=== PATIENT | male | born 1990 | race Caucasian/White ===

== ENCOUNTER 2022-10-10 07:54 | Outpatient (CLI) | payer OTHER, SELFPAY | END 2022-10-10 07:55 | disposition home or self-care (01) | LOC: NFLDREF 10-11 07:06 | PROVIDERS: PCP Family Medicine; Referring Provider Family Medicine; Visit Provider Family Medicine | DX: Z00.00 Encounter for general adult medical examination without abnormal findings (principal); R79.89 Other specified abnormal findings of blood chemistry | CPT/HCPCS: 80048; 80061; 80076 ==

== ENCOUNTER 2023-07-16 18:24 | Outpatient (CLI) | payer OTHER, SELFPAY ==
--- OUTSIDE RECORDS SUMMARY | 2023-07-16 18:27 | XMS_ITS | Clinical Summary ---
Author Name Unknown Organization [facility] Address [place], [place] [address] Care Team Providers Care Gold Leaf Laborer Name Role Phone Jerry Erwin MD Primary Care Provider [phone] Allergies Active Allergy Reactions Criticality Noted Date Comments Amoxicillin Hives 07/17/2009 Penicillins Hives 07/17/2009 Medications Medication Sig Dispensed Refills Start Date End Date Status azithromycin (ZITHROMAX Z-EVELYN) 250 mg tabletIndications:Left otitis media, unspecified otitis media type Take as directed 6 tablet 04/07/2020 Active Active Problems No known active problems Immunizations Name Administration Dates Next Due Tuberculin (PPD) 12/31/2012 Social History Tobacco Use Types Packs/Day Years Used Date Smoking Tobacco: Never Smokeless Tobacco: Never Alcohol Use Standard Drinks/Week Comments Yes 0 (1 standard drink = 0.6 oz pur e alcohol) Sex and Gender Information Value Date Recorded Sex Assigned at Not on file Gender Identity Not on file Sexual Orientation Not on file Obstetrics History Last Filed Vital Signs Vital Sign Reading Time Taken Comments Blood Pressure 134/74 04/07/2020 3:41 PM FRAME PULLEY MORTISING MACHINE OPERATOR Pulse 118 04/07/2020 3:41 PM FRAME PULLEY MORTISING MACHINE OPERATOR Temperature 38.8 ??C (101.9 ??F) 04/07/2020 3:[address] Respiratory Rate 20 04/07/2020 3:41 PM FRAME PULLEY MORTISING MACHINE OPERATOR Oxygen Saturation 97% 04/07/2020 3:41 PM FRAME PULLEY MORTISING MACHINE OPERATOR Inhaled Oxygen Concentration - - Weight 90.7 kg (200 lb) 04/07/2020 3:41 PM FRAME PULLEY MORTISING MACHINE OPERATOR Height 175.3 cm (5' 9) 04/07/2020 3:41 PM FRAME PULLEY MORTISING MACHINE OPERATOR Body Mass Index 29.53 04/07/2020 3:41 PM FRAME PULLEY MORTISING MACHINE OPERATOR Plan of Treatment Health Maintenance Due Date Last Done Comments Tdap 10/13/1999 Depression screening for age 12+ 2000 HIV for age 15-65 10/13/2003 BMI (ht and wt on same day) for age 18+ 2006 Hepatitis C screening for ag e 18-79 2006 Tetanus booster 2008 COVID-19 vaccine series (2022- season) 2022 Influenza for age 9-49 11/18/2023 Pneumococcal series for age 6-64 Aged Out No longer eligible based on patient's age to complete this topic Care Teams Gold Leaf Laborer Relationship Specialty Start Date End Date Jerry Erwin MD [address] [place] [address] PCP - General Family Practice 04/07/20
--- OUTSIDE RECORDS SUMMARY | 2023-07-16 18:27 | XMS_ITS | Continuity of Care Document ---
Author Name [facility] Organization [facility] Care Team Providers Care Radiologist Chief Of Breast Imaging Name Role Phone [facility] Unavailable Unavailable Problems Combined list of problems from Department of [facility] and [facility] facilities. It does not include entries that were removed or entered in error. 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 Inactive 1 Condition [facility] Anxiety Active Condition [facility] Chronic low back pain Active Condition [facility] Obstructive sleep apnea of adult Active Condition [facility] refractive error - myopia Active Condition [facility] astigmatism Active Condition [facility] visit for: examination of subpopulation Active Condition [facility] assess patient condition work-related occupational disease Active Condition [facility] visit for: ears / hearing exam Inactive Condition [facility] Patient Education - Injury Prevention Active Condition [facility] Allergies, Adverse Reactions, Alerts Combined list of allergies from Department of [facility] and [facility] facilities. It does not include entries that were removed or entered in error. Substance Category Reaction Severity Reaction type Status Date Reported Comments Source AMOXICILLIN Propensity to adverse reactions to drug (finding) Urticaria active 7 [facility] PENICILLIN Propensity to adverse reactions to drug (finding) Urticaria active 7 [facility] Immunizations Combined list of available immunizations from the Department of [facility] and [facility] facilities. Immunization Series Date Given Administered By Site Reaction Lot Number CVX Code Drug Tape Coater Status Comments Source COVID-19 (KALIN), VECTOR-NR, [id number]-AD26, PF, 0.5 ML 1 2020 212 complet ed [place] TA INFLUENZA, UNSPECIFIED FORMULATION 2020 88 complet ed [place] [facility] tetanus toxoid, reduced diphtheria toxoid, and acellular pertu is vaccine, adsorbed 1 [id number] [place] [address] ([facility]) complet ed tetanus toxoid, reduced diphtheri a toxoid, and acellular pertussis vaccine, adsorbed DoD anthrax vaccine 5 2018 [id number] [facility] ([facility]) complet ed anthrax vaccine DoD anthrax vaccine 4 2017 [id number] [facility] ([facility]) complet ed anthrax vaccine DoD typhoid Vi capsular polysaccharid e vaccine 1 2017 [id number] Sanofi Pasteur ([facility]) complet ed typhoid Vi capsular polysacch aride vaccine DoD Influenza, injectable, quadrivalent, preservative free 1 2017 [id number] 150 [employer] (SEQ) comple t ed Influenza , injectabl e, quadrival ent, preservat lalitha free DoD Influenza, injectable, Madin Coni Canine Kidney, preservative free, quadrivalent 1 2016 [id number] [employer] (SEQ) comple t ed Influenza , injectabl e, Madin Coni Canine Kidney, preservat lalitha free, quadrival ent DoD Influenza, injectable, quadrivalent, preservative free 1 2016 [id number] 150 [employer] (SEQ) comple t ed Influenza , injectabl e, quadrival ent, preservat lalitha free DoD Influenza, injectable, quadrivalent, preservative free 1 2014 [id number] 150 Unknown (UNK) comple t ed Influenza , injectabl e, quadrival ent, preservat lalitha free DoD Influenza, injectable, Madin Coni Canine Kidney, preservative free 1 2013 [id number] 153 Nov[employer]is [employer] l Amber. (NOV) complet ed Influenza , injectabl e, Madin Coni Canine Kidney, preservat lalitha free DoD Influenza, seasonal, injectable, preservative free 1 2012 [id number] 140 Novart[employer] Amber. (NOV) complet ed Influenza , seasonal, injectabl e, preservat lalitha free DoD Influenza, seasonal, injectable, preservative free 1 2011 [id number] 140 [facility] [employer] ([facility]) complet ed Influenza , seasonal, injectabl e, preservat lalitha free DoD anthrax vaccine [id number] [facility]) complet ed anthrax vaccine DoD Influenza, seasonal, injectable 1 2010 [id number] 141 [email or web address] (CSL) complet ed Influenza , seasonal, injectabl e DoD anthrax vaccine 2 2010 [id number] 24 [facility] ([facility]) complet ed anthrax vaccine DoD anthrax vaccine 1 2010 [id number] 24 [facility] ([facility]) complet ed anthrax vaccine DoD vaccinia (smallpox) vaccine 1 2010 [id number] 75 (CINTIA) complet ed vaccinia (smallpox ) vaccine DoD typhoid Vi capsular polysaccharid e vaccine 1 2010 [id number] Sanofi Pasteur ([facility]) complet ed typhoid Vi capsular polysacch aride vaccine DoD hepatitis A and hepatitis B vaccine 4 2009 [id number] 104 Unknown (UNK) complet ed hepatitis A and hepatitis B vaccine DoD influenza virus vaccine, split virus (incl. purified surface antigen)-reti red CODE 1 2009 [id number] 15 [email or web address] (CS) complet ed influenza virus vaccine, split virus (incl. purified surface antigen)- retired CODE DoD Novel influenza-H1N 1-09, injectable 1 2009 [id number] 127 Unknown (UNK) complet ed Novel influenza -P1P3-52, injectabl e DoD hepatitis A and hepatitis B vaccine 3 2008 [id number] 104 Unknown (UNK) complet ed hepatitis A and hepatitis B vaccine DoD influenza virus vaccine, split virus (incl. purified surface antigen)-reti red CODE 1 2008 [id number] 15 [employer] (CS) complet ed influenza virus vaccine, split virus (incl. purified surface antigen)- retired CODE DoD hepatitis A and hepatitis B vaccine 2 2008 [id number] 104 Unknown (UNK) complet ed hepatitis A and hepatitis B vaccine DoD measles, mumps and rubella virus vaccine 1 2007 UNK 03 Unknown (UNK) Not Given measles, mumps and rubella virus vaccine DoD varicella virus vaccine 1 2007 UNK 21 Unknown (UNK) Not Given varicella virus vaccine DoD hepatitis B vaccine, adult dosage 1 2007 UNK 43 Unknown (UNK) Not Given hepatitis B vaccine, adult dosage [facility] poliovirus vaccine, inactivated 1 2007 [id number] 10 Sanofi Pasteur ([facility]) complet ed polioviru s vaccine, inactivat ed DoD hepatitis A vaccine, adult dosage 1 2007 [id number] 52 [employer] (SKB) complet ed hepatitis A vaccine, adult dosage DoD influenza virus vaccine, live, attenuated, for intranasal use 1 2007 [id number] 111 [employer]. (MED) complet ed influenza virus vaccine, live, attenuate d, for intranasa l use DoD meningococcal polysaccharid e (groups A, C, Y and W-135) diphtheria toxoid conjugate vaccine (MCV4P) 1 2007 [id number] 114 Sanofi Pasteur ([facility]MC) complet ed meningoco ccal polysacch aride (groups A, C, Y and W-135) diphtheri a toxoid conjugate vaccine (MCV4P) [facility] tetanus toxoid, reduced diphtheria toxoid, and acellular pertu is vaccine, adsorbed 1 2007 [id number] 115 Sanofi Pasteur ([facility]) complet ed tetanus toxoid, reduced diphtheri a toxoid, and acellular pertussis vaccine, adsorbed DoD Encounters Combined list of: 1) Encounters from Department of Veterans Affairs facilities going back up to thelast 18 months. 2) Encounters from the Department of Defense facilities going back up to 280 months. Location Location Details Encounter Type Encounter Number Reason For Visit Attending Provider ADM Date DC Date Status Disposition Source [place]) OUTPATIENT [id number] 070 TIM INIGUEZ 01/21 Released w/o Limitations [place] ) OUTPATIENT [id number] KRISTI SPEARS 02/18 Released w/o Limitations [place] [facility] OUTPATIENT [id number] 01/10 Released w/o Limitations Theater [place]([facility] Bldg [address]) OUTPATIENT [id number] Notes Entered by: Sahil EWING 11 Dec 2017 0914 ------- ------- ------- ------- -- CHANDU YOUNG 12/11 Released w/o Limitations [place]([facility] [address]) Theater Facility OUTPATIENT [id number] Theater Provider 08/14 Released w/o Limitations [facility] OUTPATIENT [id number] Theater Provider 08/23 Released w/o Limitations Theater [facility] OUTPATIENT [id number] Theater Provider 08/28 Released w/o Limitations Theater Facilit [place]([facility] [address]) OUTPATIENT [id number] Notes Entered by: JUNE HERNANDEZ 13 Sep 2018 0827 ------- ------- ------- ------- -- SERGIO Sanchez 09/13 Released w/o Limitations [place]([facility] [address]) [place] Hearing Conservat ion) OUTPATIENT [id number] Notes Entered by: NATALIA HOLM 13 Sep 2018 0909 ------- ------- ------- ------- -- YUMIKO Pfeiffer 09/13 Released w/o Limitations [place]([facility] Hearing Conserv ation) [place] Physical Exam Clinic) OUTPATIENT [id number] Notes Entered by: VLADISLAV FERRO SA 13 Sep 2018 1209 ------- ------- ------- ------- -- MARKUS AU 09/13 Released w/o Limitations [place]([facility] Physica l Exam Clinic) [place] [facility] Outpatient Encounter [id number] 10/11 [facility] [place] [facility] Procedures Combined list of: 1) Procedures from Department of Veterans Affairs facilities going back up to thelast 18 months, not all VA non-surgical procedures are included; 2) All procedures from the Department of Defense facilities. Procedure Procedure Type Code Date Perfomer Comments Sourc e Threshold Audiogram (Pure Tone) Automated Threshold Audiogram (Pure Tone) Automated [id number] 09/14/19 19 YUMIKO MATA [facility] Patient education, not otherwise cla ified, non-physician provider, group, per se ion 09/14/19 19 YUMIKO MATA [facility] Preventive Medicine Administration Of Health Risk Questionnaire Patient-Focused Preventive Medicine Administration Of Health Risk Questionnaire Patient-Focused 47693 12/12/19 18 CHANDU MCCRARY [facility] Health And Behav A e mt Each 15 Min Initial A e ment Health And Behav Assessmt Each 15 Min Initial Assessment 31715 08/26/19 11 TIM MANDUJANO [facility] Screening Test Of Visual Acuity, Quantitative, Bilateral Screening Test Of Visual Acuity, Quantitative, Bilateral 50795 02/19/20 08 KRISTI SPEARS [facility] Determination Of Refractive State Determination Of Refractive State 99520 02/19/20 08 KRISTI SPEARS [facility] Spectacles Services Fitting Monofocal Except For Aphakia Spectacles Services Fitting Monofocal Except For Aphakia 43617 02/19/20 08 KRISTI SPEARS [facility] Audiometry Group Testing Audiometry Grou p Testing 76677 01/22/20 08 TIM INIGUEZ Ear mold/insert, not disposable, any type 01/22/20 08 TIM INIGUEZ [facility] HEALTH&BEHAV ASSESSMENT (EG, HEALTH-FOC CLINICAL INTERVIEW, BEHAVIORAL OBSERVATIONS, PSYCHOPHYSICOLOGICAL MONITOR, HEALTH-ORIENT QUESTIONNAIRES), EA 15 MIN [id number] W THE PATIENT; INIT ASSESSMENT 08/26/19 11 [facility] FITTING OF SPECTACLES, EXCEPT FOR APHAKIA; MONOFOCAL 08/20/19 11 [facility] IMMUNIZATION ADMINISTRATION (INCLUDES PERCUTANEOUS, INTRADERMAL, SUBCUTANEOUS, OR INTRAMUSCULAR INJECTIONS); EACH ADDITIONAL VACCINE (SINGLE OR COMBINATION VACCINE/TOXOID) 08/20/19 11 [facility] SCREENING TEST OF VISUAL ACUITY, QUANTITATIVE, BILATERAL 02/19/20 08 [facility] BUPRENORPHINE IMPLANT, 74.2 MG 01/22/20 08 [facility] EAR MOLD/INSERT, NOT DISPOSABLE, ANY TYPE 01/22/20 08 [facility] COLLECTION OF VENOUS BLOOD BY VENIPUNCTURE 01/21/20 08 [facility] PATIENT EDUCATION, NOT OTHERWISE CLASSIFIED, NON-PHYSICIAN PROVIDER, GROUP, PER SESSION 09/14/19 19 [facility] SCREENING TEST OF VISUAL ACUITY, QUANTITATIVE, BILATERAL 09/14/19 19 [facility] ADMINISTRATION OF PATIENT-FOCUSED HEALTH RISK ASSESSMENT INSTRUMENT (EG, HEALTH HAZARD APPRAISAL) WITH SCORING AND DOCUMENTATION, PER STANDARDIZED INSTRUMENT 12/12/19 18 [facility] TYPHOID VACCINE, CAPSULAR POLYSACCHARIDE (VICPS), FOR INTRAMUSCULAR USE 12/11/19 18 [facility] Social History Combined list of available smoking, tobacco, and other social history from Department of Defense and Veterans Affairs facilities. Social History Type Response Date Comment Sour e Tobacco smoking status [facility]-TOBACCO NEVER USED 11/02/2020 [facility] This section is an empty social history section. [facility]
== END 2023-07-16 18:25 | disposition home or self-care (01) ==
PROVIDERS: PCP Family Medicine; Visit Provider Family Medicine
DX: B35.1 Tinea unguium (principal); Z79.899 Other long term (current) drug therapy
CPT/HCPCS: 80053

== ENCOUNTER 2023-08-15 07:50 | Outpatient (CLI) | payer OTHER, SELFPAY ==
--- OUTSIDE RECORDS SUMMARY | 2023-08-16 10:23 | XMS_ITS | Clinical Summary ---
Author Organization [facility] Address [place], [place] [address] Care Team Providers Care Brokerage Office Manager Name Role Phone Jerry Erwin MD Primary Care Provider [phone] Allergies Active Allergy Reactions Criticality Noted Date [...] Comments Blood Pressure 134/74 04/07/2020 3:41 PM RN ACUTE CARE Pulse 118 04/07/2020 3:41 PM RN ACUTE CARE Temperature 38.8 ??C (101.9 ??F) 04/07/2020 3:[address] Respiratory Rate 20 04/07/2020 3:41 PM RN ACUTE CARE Oxygen Saturation 97% 04/07/2020 3:41 PM RN ACUTE CARE Inhaled Oxygen Concentration - - Weight 90.7 kg (200 lb) 04/07/2020 3:41 PM RN ACUTE CARE Height 175.3 cm (5' 9) 04/07/2020 3:41 PM RN ACUTE CARE Body Mass Index 29.53 04/07/2020 3:41 PM RN ACUTE CARE Plan of Treatment Health Maintenance Due Date [...] age to complete this topic Care Teams Brokerage Office Manager Relationship Specialty Start Date End Date Jerry Erwin MD [address] [place] [address] PCP - General Family Practice 04/07/20
--- OUTSIDE RECORDS SUMMARY | 2023-08-16 10:23 | XMS_ITS | Continuity of Care Document ---
Author Name [facility] Organization [facility] Care Team Providers Care Channeler Name Role Phone [facility] Unavailable Unavailable Problems Combined list of problems from Department of [facility] ([place], [place]) and [facility] facilities. It does not include entries that were removed or entered in error. 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 Inactive 1 Condition [facility] Anxiety Active Condition [facility] Chronic low back pain Active Condition [facility] Obstructive sleep apnea of adult Active Condition [facility] refractive error - myopia Active Condition [facility] astigmatism Active Condition [facility] visit for: examination of subpopulation Active Condition [facility] assess patient condition work-related occupational disease Active Condition [facility] visit for: ears / hearing exam Inactive Condition [facility] Patient Education - Injury Prevention Active Condition [facility] Allergies, Adverse Reactions, Alerts Combined list of allergies from Department of [facility] ([place], [place]) and [facility] facilities. It does not include entries that were removed or entered in error. Substance Category Reaction Severity Reaction type Status Date Reported Comments Source AMOXICILLIN Propensity to adverse reactions to drug (finding) Urticaria active 7 [facility] PENICILLIN Propensity to adverse reactions to drug (finding) Urticaria active 7 [facility] Immunizations Combined list of available immunizations from the Department of [facility] ([place], [place]) and [facility] facilities. Immunization Series Date Given Administered By Site Reaction Lot Number CVX Code Drug Strategy Lead Status Comments Source COVID-19 (KALIN), VECTOR-NR, RS-AD26, PF, 0.5 ML 1 2020 212 complet ed [place] TA INFLUENZA, UNSPECIFIED FORMULATION 2020 88 complet ed [place] [facility] tetanus toxoid, reduced diphtheria toxoid, and acellular pertu is vaccine, adsorbed 1 [id number] [place] [address] ([facility]) complet ed tetanus toxoid, reduced diphtheri a toxoid, and acellular pertussis vaccine, adsorbed DoD anthrax vaccine 5 2018 [id number] [facility] ([facility]) complet ed anthrax vaccine DoD anthrax vaccine 4 2017 [id number] [facility] ([facility]) complet ed anthrax vaccine DoD typhoid Vi capsular polysaccharid e vaccine 1 2017 [id number] Sanofi Pasteur ([facility]) complet ed typhoid Vi capsular polysacch aride vaccine DoD Influenza, injectable, quadrivalent, preservative free 1 2017 [id number] [employer] (SEQ) comple t ed Influenza , injectabl e, quadrival ent, preservat lalitha free DoD Influenza, injectable, Madin Dixie Canine Kidney, preservative free, quadrivalent 1 2016 [id number] [employer] (SEQ) comple t ed Influenza , injectabl e, Madin Dixie Canine Kidney, preservat lalitha free, quadrival ent DoD Influenza, injectable, quadrivalent, preservative free 1 2016 [id number] 150 [employer] (SEQ) comple t ed Influenza , injectabl e, quadrival ent, preservat lalitha free DoD Influenza, injectable, quadrivalent, preservative free 1 2014 [id number] 150 Unknown (UNK) comple t ed Influenza , injectabl e, quadrival ent, preservat lalitha free DoD Influenza, injectable, Madin Dixie Canine Kidney, preservative free 1 2013 [id number] 153 Novartis [employer] l Amber. (NOV) complet ed Influenza , injectabl e, Madin Coni Canine Kidney, preservat lalitha free DoD Influenza, seasonal, injectable, preservative free 1 2012 [id number] 140 Novartis [employer] Amber. (NOV) complet ed Influenza , seasonal, injectabl e, preservat lalitha free DoD Influenza, seasonal, injectable, preservative free 1 2011 [id number] 140 [facility] [employer] ([facility]) complet ed Influenza , seasonal, injectabl e, preservat lalitha free DoD anthrax vaccine 3 2011 [id number] [facility] ([facility]) complet ed anthrax vaccine DoD Influenza, seasonal, injectable 1 2010 [id number] 141 [employer] (CSL) complet ed Influenza , seasonal, injectabl e DoD anthrax vaccine 2 2010 [id number] 24 [facility] ([facility]) complet ed anthrax vaccine DoD anthrax vaccine 1 2010 [id number] [facility] (MIP) complet ed anthrax vaccine DoD vaccinia (smallpox) vaccine 1 2010 [id number] 75 (CINTIA) complet ed vaccinia (smallpox ) vaccine DoD typhoid Vi capsular polysaccharid e vaccine 1 2010 [id number] Sanofi Pasteur ([facility]) complet ed typhoid Vi capsular polysacch aride vaccine DoD hepatitis A and hepatitis B vaccine 4 2009 [id number] 104 Unknown (UNK) complet ed hepatitis A and hepatitis B vaccine DoD influenza virus vaccine, split virus (incl. purified surface antigen)-reti red CODE 1 2009 [id number] 15 [employer] (CS) complet ed influenza virus vaccine, split virus (incl. purified surface antigen)- retired CODE DoD Novel influenza-H1N 1-09, injectable 1 2009 [id number] 127 Unknown (UNK) complet ed Novel influenza -T5O0-61, injectabl e DoD hepatitis A and hepatitis B vaccine 3 2008 [id number] 104 Unknown (UNK) complet ed hepatitis A and hepatitis B vaccine DoD influenza virus vaccine, split virus (incl. purified surface antigen)-reti red CODE 1 2008 [id number] 15 [employer] (CS) complet ed influenza virus vaccine, [...] Not Given hepatitis B vaccine, adult dosage [facility] poliovirus vaccine, inactivated 1 2007 [id number] 10 Sanofi Pasteur ([facility]) complet ed polioviru s vaccine, inactivat ed DoD hepatitis A vaccine, adult dosage 1 2007 [id number] 52 [employer] (SKB) complet ed hepatitis A vaccine, adult dosage DoD influenza virus vaccine, live, attenuated, for intranasal use 1 2007 [id number] 111 [employer]. (MED) complet ed influenza virus vaccine, live, attenuate d, for intranasa l use DoD meningococcal polysaccharid e (groups A, C, Y and W-135) diphtheria toxoid conjugate vaccine (MCV4P) 1 2007 [id number] 114 Sanofi Pasteur (PMC) complet ed meningoco ccal polysacch aride (groups A, C, Y and W-135) diphtheri a toxoid conjugate vaccine (MCV4P) [facility] tetanus toxoid, reduced diphtheria toxoid, and acellular pertu is vaccine, adsorbed 1 2007 [id number] 115 Sanofi Pasteur ([facility]) complet ed tetanus [...] ADM Date DC Date Status Disposition Source [place]) OUTPATIENT [id number] TIM INIGUEZ 01/21 Released w/o Limitations [place] [facility] [place] OUTPATIENT [id number] KRISTI SPEARS 02/18 Released w/o Limitations [place] [facility] OUTPATIENT [id number] 01/10 Released w/o Limitations [facility] [place]([facility] B[address] [address]) OUTPATIENT [id number] Notes Entered by: Sahil EWING 11 Dec 2017 0914 ------- ------- ------- ------- -- CHANDU YOUNG 12/11 Released w/o Limitations [place]([facility] [address]) [facility] OUTPATIENT [id number] Theater Provider 08/14 Released w/o Limitations [facility] OUTPATIENT [id number] Theater Provider 08/23 Released w/o Limitations [facility] OUTPATIENT [id number] Theater Provider 08/28 Released w/o Limitations [facility] [place] [address]) OUTPATIENT [id number] Notes Entered by: JUNE HERNANDEZ 13 Sep 2018 0827 ------- ------- ------- ------- -- SERGIO Sanchez 09/13 Released w/o Limitations [place] [address]) [place] Hearing Conservat ion) OUTPATIENT [id number] Notes Entered by: NATALIA HOLM 13 Sep 2018 0909 ------- ------- ------- ------- -- YUMIKO Pfeiffer 09/13 Released w/o Limitations [place] Hearing Conserv ation) [place]) OUTPATIENT [id number] Notes Entered by: VLADISLAV FERRO SA 13 Sep 2018 1209 ------- ------- ------- ------- -- MARKUS AU 09/13 Released w/o Limitations [place]([facility]) [facility] [facility] Outpatient Encounter [id number] 10/11 [facility] Procedures Combined list of: 1) Procedures from Department of Veterans Affairs facilities going back up to thelast 18 months, not all VA non-surgical procedures are included; 2) All procedures from the Department of Defense facilities. Procedure Procedure Type Code Date Perfomer Comments Sourc e Threshold Audiogram (Pure Tone) Automated Threshold Audiogram (Pure Tone) Automated [id number] 09/14/19 19 YUMIKO MATA [facility] Patient education, not otherwise cla ified, non-physician provider, group, per se ion 09/14/19 19 YUMIKO MATA [facility] Preventive Medicine Administration Of Health Risk Questionnaire Patient-Focused Preventive Medicine Administration Of Health Risk Questionnaire Patient-Focused 47359 12/12/19 18 CHANDU MCCRARY [facility] Health And Behav A e mt Each 15 Min Initial A e ment Health And Behav Assessmt Each 15 Min Initial Assessment 03501 08/26/19 11 TIM MANDUJANO [facility] Screening Test Of Visual Acuity, Quantitative, Bilateral Screening Test Of Visual Acuity, Quantitative, Bilateral 98926 02/19/20 08 KRISTI SPEARS [facility] Determination Of Refractive State Determination Of Refractive State 52314 02/19/20 08 KRISTI SPEARS [facility] Spectacles Services Fitting Monofocal Except For Aphakia Spectacles Services Fitting Monofocal Except For Aphakia 20690 02/19/20 08 KRISTI SPEARS Audiometry Group Testing Audiometry Grou p Testing 59518 01/22/20 08 TIM INIGUEZ Ear mold/insert, not disposable, any type 01/22/20 08 TIM INIGUEZ PATIENT EDUCATION, NOT OTHERWISE CLASSIFIED, NON-PHYSICIAN PROVIDER, GROUP, PER SESSION 09/14/19 19 [facility] SCREENING TEST OF VISUAL ACUITY, QUANTITATIVE, BILATERAL 09/14/19 19 [facility] ADMINISTRATION OF PATIENT-FOCUSED HEALTH RISK ASSESSMENT INSTRUMENT (EG, HEALTH HAZARD APPRAISAL) WITH SCORING AND DOCUMENTATION, PER STANDARDIZED INSTRUMENT 12/12/19 18 [facility] TYPHOID VACCINE, CAPSULAR POLYSACCHARIDE (VICPS), FOR INTRAMUSCULAR USE 12/11/19 18 [facility] SCREENING TEST OF VISUAL ACUITY, QUANTITATIVE, BILATERAL 02/19/20 08 [facility] BUPRENORPHINE IMPLANT, 74.2 MG 01/22/20 08 [facility] EAR MOLD/INSERT, NOT DISPOSABLE, ANY TYPE 01/22/20 08 [facility] COLLECTION OF VENOUS BLOOD BY VENIPUNCTURE 01/21/20 08 [facility] HEALTH&BEHAV ASSESSMENT (EG, HEALTH-FOC CLINICAL INTERVIEW, BEHAVIORAL OBSERVATIONS, PSYCHOPHYSICOLOGICAL MONITOR, HEALTH-ORIENT QUESTIONNAIRES), EA 15 MIN [id number] W THE PATIENT; INIT ASSESSMENT 08/26/19 11 [facility] FITTING OF SPECTACLES, EXCEPT FOR APHAKIA; MONOFOCAL 08/20/19 11 [facility] IMMUNIZATION ADMINISTRATION (INCLUDES PERCUTANEOUS, INTRADERMAL, SUBCUTANEOUS, OR INTRAMUSCULAR INJECTIONS); EACH ADDITIONAL VACCINE (SINGLE OR COMBINATION VACCINE/TOXOID) 08/20/19 11 [facility] Social History Combined list of available smoking, tobacco, and other social history from Department of Defense and Veterans Affairs facilities. Social History Type Response Date Comment [facility] e Tobacco smoking status [facility] VA-TOBACCO NEVER USED 11/02/2020 [facility] This section is an empty social history section. [facility]
== END 2023-08-15 07:51 | disposition home or self-care (01) ==
LOC: NFLDREF 08-16 10:22
PROVIDERS: PCP Family Medicine; Referring Provider Family Medicine; Visit Provider Family Medicine
DX: R79.89 Other specified abnormal findings of blood chemistry (principal); E78.00 Pure hypercholesterolemia, unspecified
CPT/HCPCS: 80061; 80076

== ENCOUNTER 2024-01-02 08:01 | Outpatient (CLI) | payer OTHER, SELFPAY ==
--- OUTSIDE RECORDS SUMMARY | 2024-01-02 15:10 | XMS_ITS | Continuity of Care Document ---
Author Name [facility] Organization [facility] Care Team Providers Care Loading Unit Tool Setter Name Role Phone [facility] Unavailable Unavailable Problems Combined list of problems from Department of [facility] ([place], [place]) and [facility] facilities. It does not include entries that were removed or entered in error. 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 Inactive 1 Condition [facility] Anxiety Active Condition [facility] Chronic low back pain Active Condition [facility] Obstructive sleep apnea of adult Active Condition [facility] refractive error - myopia Active Condition [facility] astigmatism Active Condition [facility] visit for: examination of subpopulation Active Condition [facility] assess patient condition work-related occupational disease Active Condition [facility] visit for: ears / hearing exam Inactive Condition [facility] Patient Education - Injury Prevention Active Condition [facility] Allergies, Adverse Reactions, Alerts Combined list of allergies from Department of [facility] ([place], [place]) and [facility] facilities. It does not include entries that were removed or entered in error. Substance Category Reaction Severity Reaction type Status Date Reported Comments Source AMOXICILLIN Propensity to adverse reactions to drug (finding) Urticaria active 7 [facility] PENICILLIN Propensity to adverse reactions to drug (finding) Urticaria active 7 [facility] Immunizations Combined list of available immunizations from the Department of [facility] ([place], [place]) and [facility] facilities. Immunization Series Date Given Administered By Site Reaction Lot Number CVX Code Drug Commissary Helper Status Comments Source COVID-19 (KALIN), VECTOR-NR, RS-AD26, PF, 0.5 ML 1 2020 212 complet ed [place] TA INFLUENZA, UNSPECIFIED FORMULATION 2020 88 complet ed [place] [facility] tetanus toxoid, reduced diphtheria toxoid, and acellular pertu is vaccine, adsorbed 1 [id number] [place] [address] ([facility]) complet ed tetanus toxoid, reduced diphtheri a toxoid, and acellular pertussis vaccine, adsorbed DoD anthrax vaccine 5 [id number] [facility] ([facility]) complet ed anthrax vaccine DoD anthrax vaccine 4 [id number] [facility] ([facility]) complet ed anthrax vaccine DoD typhoid Vi capsular polysaccharid e vaccine 1 2017 [id number] Sanofi Pasteur ([facility]) complet ed typhoid Vi capsular polysacch aride vaccine DoD Influenza, injectable, quadrivalent, preservative free 1 2017 [id number] 150 Seqirus (SEQ) comple t ed Influenza , injectabl e, quadrival ent, preservat lalitha free DoD Influenza, injectable, Madin [place] Canine Kidney, preservative free, quadrivalent 1 2016 [id number] Seqirus (SEQ) comple t ed Influenza , injectabl e, Madin [place] Canine Kidney, preservat lalitha free, quadrival ent DoD Influenza, injectable, quadrivalent, preservative free 1 2016 [id number] 150 Se[employer]irus (SEQ) comple t ed Influenza , injectabl e, quadrival ent, preservat lalitha free DoD Influenza, injectable, quadrivalent, preservative free 1 2014 [id number] 150 Unknown (UNK) comple t ed Influenza , injectabl e, quadrival ent, preservat lalitha free DoD Influenza, injectable, Madin Coni Canine Kidney, preservative free 1 2013 [id number] 153 Novartis Pharmaceutica l Amber. (NOV) complet ed Influenza , injectabl e, Madin [place] Canine Kidney, preservat lalitha free DoD Influenza, seasonal, injectable, preservative free 1 2012 [id number] 140 Novartis Pharm[employer] Amber. (NOV) complet ed Influenza , seasonal, injectabl e, preservat lalitha free DoD Influenza, seasonal, injectable, preservative free 1 2011 [id number] 140 [facility] [employer] ([facility]) complet ed Influenza , seasonal, injectabl e, preservat lalitha free DoD anthrax vaccine 3 2011 [id number] 24 [facility] ([facility]) complet ed anthrax vaccine DoD Influenza, seasonal, injectable 1 2010 [id number] 1A 141 CS [employer] (CSL) complet ed Influenza , seasonal, injectabl e DoD anthrax vaccine 2 2010 [id number] [facility]) complet ed anthrax vaccine DoD anthrax vaccine 1 2010 [id number] [facility] ([facility]) complet ed anthrax vaccine DoD vaccinia (smallpox) vaccine 1 2010 [id number] 75 (CINTIA) complet ed vaccinia (smallpox ) vaccine DoD typhoid Vi capsular polysaccharid e vaccine 1 2010 [id number] Sanofi Pasteur ([facility]) complet ed typhoid Vi capsular polysacch aride vaccine DoD hepatitis A and hepatitis B vaccine 4 2009 [id number] 104 Unknown (UNK) complet ed hepatitis A and hepatitis B vaccine DoD influenza virus vaccine, split virus (incl. purified surface antigen)-reti red CODE 1 2009 [id number] 15 [employer] (CS) complet ed influenza virus vaccine, split virus (incl. purified surface antigen)- retired CODE DoD Novel influenza-H1N 1-09, injectable 1 2009 [id number] 127 Unknown (UNK) complet ed Novel influenza -V4P6-54, injectabl e DoD hepatitis A and hepatitis B vaccine 3 2008 [id number] 104 Unknown (UNK) complet ed hepatitis A and hepatitis B vaccine DoD influenza virus vaccine, split virus (incl. purified surface antigen)-reti red CODE 1 2008 [id number] 1A 15 [employer] (CS) complet ed influenza virus vaccine, [...] Not Given hepatitis B vaccine, adult dosage [facility] poliovirus vaccine, inactivated 1 2007 [id number] 10 Sanofi Pasteur ([facility]) complet ed polioviru s vaccine, inactivat ed DoD hepatitis A vaccine, adult dosage 1 2007 [id number] 52 [employer]Kline (SKB) complet ed hepatitis A vaccine, adult dosage DoD influenza virus vaccine, live, attenuated, for intranasal use 1 2007 [id number] 111 [employer]. (MED) complet ed influenza virus vaccine, live, attenuate d, for intranasa l use DoD meningococcal polysaccharid e (groups A, C, Y and W-135) diphtheria toxoid conjugate vaccine (MCV4P) 1 2007 [id number] 114 Sanofi Pasteur (PMC) complet ed meningoco ccal polysacch aride (groups A, C, Y and W-135) diphtheri a toxoid conjugate vaccine (MCV4P) [facility] tetanus toxoid, reduced diphtheria toxoid, and acellular pertu is vaccine, adsorbed 1 2007 [id number] 115 Sanofi Pasteur ([facility]MC) complet ed tetanus [...] ADM Date DC Date Status Disposition Source [place]) OUTPATIENT [id number] TIM INIGUEZ 01/21 Released w/o Limitations [place] OUTPATIENT [id number] KRISTI SPEARS 02/18 Released w/o Limitations [place] [facility] OUTPATIENT [id number] 01/10 Released w/o Limitations [facility] [place]([facility] Bldg [address]) OUTPATIENT [id number] Notes Entered by: Sahil EWING 11 Dec 2017 0914 ------- ------- ------- ------- -- CHANDU YOUNG 12/11 Released w/o Limitations [place] [address]) [facility] OUTPATIENT [id number] Theater Provider 08/14 Released w/o Limitations [facility] OUTPATIENT [id number] Theater Provider 08/23 Released w/o Limitations [facility] OUTPATIENT [id number] Theater Provider 08/28 Released w/o Limitations [facility] [place] [address]) OUTPATIENT [id number] Notes Entered by: JUNE HERNANDEZ 13 Sep 2018 0827 ------- ------- ------- ------- -- SERGIO Sanchez 09/13 Released w/o Limitations [place] [address]) [place] Hearing Conservat ion) OUTPATIENT [id number] 8 Notes Entered by: NATALIA HOLM 13 Sep 2018 0909 ------- ------- ------- ------- -- YUMIKO Pfeiffer 09/13 Released w/o Limitations [place] Hearing Conserv ation) [place] Physical Exam Clinic) OUTPATIENT [id number] Notes Entered by: VLADISLAV FERRO SA 13 Sep 2018 1209 ------- ------- ------- ------- -- MARKUS AU 09/13 Released w/o Limitations [place] Physica l Exam Clinic) [facility] [facility] Outpatient Encounter [id number] 10/11 [facility] [place] [facility] Procedures Combined list of: 1) Procedures from Department of Veterans Affairs facilities going back up to thelast 18 months, not all VA non-surgical procedures are included; 2) All procedures from the Department of Defense facilities. Procedure Procedure Type Code Date Perfomer Comments Sourc e Threshold Audiogram (Pure Tone) Automated Threshold Audiogram (Pure Tone) Automated [id number] 09/14/19 19 YUMIKO MATA [facility] Patient education, not otherwise cla ified, non-physician provider, group, per se ion 09/14/19 19 YUMIKO MATA [facility] Preventive Medicine Administration Of Health Risk Questionnaire Patient-Focused Preventive Medicine Administration Of Health Risk Questionnaire Patient-Focused 23973 12/12/19 18 CHANDU MCCRARY [facility] Health And Behav A e mt Each 15 Min Initial A e ment Health And Behav Assessmt Each 15 Min Initial Assessment 36745 08/26/19 11 TIM MANDUJANO [facility] Screening Test Of Visual Acuity, Quantitative, Bilateral Screening Test Of Visual Acuity, Quantitative, Bilateral 51965 02/19/20 08 KRISTI SPEARS [facility] Determination Of Refractive State Determination Of Refractive State 88851 02/19/20 08 KRISTI SPEARS [facility] Spectacles Services Fitting Monofocal Except For Aphakia Spectacles Services Fitting Monofocal Except For Aphakia 96947 02/19/20 08 KRISTI SPEARS [facility] Audiometry Group Testing Audiometry Grou p Testing 57314 01/22/20 08 TIM INIGUEZ Ear mold/insert, not disposable, any type 01/22/20 08 TIM INIGUEZ [facility] HEALTH&BEHAV ASSESSMENT (EG, HEALTH-FOC CLINICAL INTERVIEW, BEHAVIORAL OBSERVATIONS, PSYCHOPHYSICOLOGICAL MONITOR, HEALTH-ORIENT QUESTIONNAIRES), EA 15 MIN [id number] W THE PATIENT; INIT ASSESSMENT 08/26/19 11 [facility] FITTING OF SPECTACLES, EXCEPT FOR APHAKIA; MONOFOCAL 08/20/19 11 [facility] IMMUNIZATION ADMINISTRATION (INCLUDES PERCUTANEOUS, INTRADERMAL, SUBCUTANEOUS, OR INTRAMUSCULAR INJECTIONS); EACH ADDITIONAL VACCINE (SINGLE OR COMBINATION VACCINE/TOXOID) 08/20/19 11 [facility] SCREENING TEST OF VISUAL ACUITY, QUANTITATIVE, BILATERAL 02/19/20 08 [facility] BUPRENORPHINE IMPLANT, 74.2 MG 01/22/20 08 [facility] EAR MOLD/INSERT, NOT DISPOSABLE, ANY TYPE 01/22/20 08 [facility] COLLECTION OF VENOUS BLOOD BY VENIPUNCTURE 01/21/20 08 [facility] PATIENT EDUCATION, NOT OTHERWISE CLASSIFIED, NON-PHYSICIAN PROVIDER, GROUP, PER SESSION 09/14/19 19 [facility] SCREENING TEST OF VISUAL ACUITY, QUANTITATIVE, BILATERAL 09/14/19 19 [facility] ADMINISTRATION OF PATIENT-FOCUSED HEALTH RISK ASSESSMENT INSTRUMENT (EG, HEALTH HAZARD APPRAISAL) WITH SCORING AND DOCUMENTATION, PER STANDARDIZED INSTRUMENT 12/12/19 18 [facility] TYPHOID VACCINE, CAPSULAR POLYSACCHARIDE (VICPS), FOR INTRAMUSCULAR USE 12/11/19 18 [facility] Social History Combined list of available smoking, tobacco, and other social history from Department of Defense and Veterans Affairs facilities. Social History Type Response Date Comment Sour e Tobacco smoking status [facility] NEVER USED 11/02/2020 [facility] This section is an empty social history section. [facility]
--- OUTSIDE RECORDS SUMMARY | 2024-01-02 15:10 | XMS_ITS | Clinical Summary ---
Author Organization [employer] [facility] Address [place], [place] [address] Care Team Providers Care Lens Inspector Name Role Phone Jerry Erwin MD Primary Care Provider [phone] Allergies Active Allergy Reactions Criticality Noted Date [...] Comments Blood Pressure 134/74 04/07/2020 3:41 PM SENIOR DESIGNER/ART DIRECTOR Pulse 118 04/07/2020 3:41 PM SENIOR DESIGNER/ART DIRECTOR Temperature 38.8 ??C (101.9 ??F) 04/07/2020 3:[address] Respiratory Rate 20 04/07/2020 3:41 PM SENIOR DESIGNER/ART DIRECTOR Oxygen Saturation 97% 04/07/2020 3:41 PM SENIOR DESIGNER/ART DIRECTOR Inhaled Oxygen Concentration - - Weight 90.7 kg (200 lb) 04/07/2020 3:41 PM SENIOR DESIGNER/ART DIRECTOR Height 175.3 cm (5' 9) 04/07/2020 3:41 PM SENIOR DESIGNER/ART DIRECTOR Body Mass Index 29.53 04/07/2020 3:41 PM SENIOR DESIGNER/ART DIRECTOR Plan of Treatment Health Maintenance Due Date Last Done Comments Tdap 10/13/1999 Depression screening for age 12+ 2000 HIV for age 15-65 10/13/2003 BMI (ht and wt on same day) for age 18+ 2006 Hepatitis C screening for ag e 18-79 2006 Tetanus booster 2008 Lipids for age 35-44 10/13/2023 COVID-19 vaccine series ( season) 2023 Influenza for age 9-49 11/18/2023 Pneumococcal series for age 6-64 Aged Out No longer eligible based on patient's age to complete this topic Care Teams Lens Inspector Relationship Specialty Start Date End Date Jerry Erwin MD [address] [place] [address] PCP - General Family Practice 04/07/20
== END 2024-01-02 08:02 | disposition home or self-care (01) ==
LOC: NFLDREF 15:08
PROVIDERS: PCP Family Medicine; Referring Provider Family Medicine; Visit Provider Family Medicine
DX: E78.00 Pure hypercholesterolemia, unspecified (principal); Z13.1 Encounter for screening for diabetes mellitus
CPT/HCPCS: 80053; 80061